=== PATIENT | female | born 1995 | race Caucasian/White ===

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

== ENCOUNTER 2018-02-01 05:19 | Inpatient (IN) | payer MEDICAID ==
[2018-01-31 13:07] LABS: APPEARANCE,URINE SLIGHTLY-CLOUDY; BILIRUBIN,URINE NEGATIVE (NEGATIVE); COLOR,URINE YELLOW; GLUCOSE, URINE NEGATIVE (NEGATIVE); KETONES,URINE NEGATIVE (NEGATIVE); LEUKOCYTE ESTERASE,URINE NEGATIVE (NEGATIVE); NITRITE,URINE NEGATIVE (NEGATIVE); PROTEIN,URINE NEGATIVE (NEGATIVE); UROBILINOGEN,URINE NEGATIVE mg/dL (<2.0)
[2018-01-31 13:13] LABS: ABSOLUTE EOSINOPHILS # (AUTO) 0.1 10^3/uL (0.0-0.6); ABSOLUTE LYMPHOCYTES (AUTO) 2.4 10^3/uL (0.5-4.7); ABSOLUTE MONOCYTES (AUTO) 0.6 10^3/uL (0.1-1.4); ABSOLUTE NEUT (AUTO) 4.9 10^3/uL (1.7-8.2); BASOPHILS % (AUTO) 0.5 % (0-2); EOSINOPHILS % (AUTO) 0.7 % (0-6); HEMATOCRIT 37.2 % (36.0-47.0); HEMOGLOBIN 12.2 g/dL (12.0-15.5); LYMPHOCYTES % (AUTO) 30.1 % (13-45); MEAN CORPUSCULAR HEMOGLOBIN 26.6 pg (27.0-33.4); MEAN CORPUSCULAR HGB CONC 32.9 g/dL (32.0-36.0); MEAN CORPUSCULAR VOLUME 81 fl (80-97); MONOCYTES % (AUTO) 7.4 % (3-13); PLATELET COUNT 102 10^3/uL (150-450); RED BLOOD COUNT 4.61 10^6/uL (3.72-5.28); RED CELL DISTRIBUTION WIDTH 13.1 % (11.5-14.0); SEGMENTED NEUTROPHILS % (AUTO) 61.3 % (42-78); TOTAL CELLS COUNTED % (AUTO) 100 %
[2018-01-31 13:20] LABS: URINE AMPHETAMINES SCREEN NEGATIVE; URINE BARBITURATES SCREEN NEGATIVE; URINE BENZODIAZEPINES SCREEN NEGATIVE; URINE METHADONE SCREEN NEGATIVE; URINE PHENCYCLIDINE SCREEN NEGATIVE
[2018-01-31 13:41] LABS: URINE COCAINE SCREEN UNCONFIRMED POSITIVE; URINE MARIJUANA (THC) SCREEN UNCONFIRMED POSITIVE
[~2018-02-01 05:19] MED LIST changes: +CEFAZOLIN 1 GM/D5W RTU 1 GM/50 ML RTUPB IV PRN; -CEFAZOLIN 1 GM/D5W RTU 1 GM/50 ML RTUPB IV SCH; -CEFAZOLIN SODIUM 1 GM in DEXTROSE 5%-WATER 50 ML IV PRN; +CEFAZOLIN SODIUM IV PRN; +LACTATED RINGERS 1000 ML IV PRN; +NORMAL SALINE IV PRN
[2018-02-01] MEDS ORDERED: MEPERIDINE HCL/PF INJ 25 MG/1 ML DISP.SYRIN IV PRN (08:25)
[2018-02-01] MEDS ORDERED: FENTANYL CITRATE INJ/PF 100 MCG/2 ML AMPUL IV PRN ×3 (08:25)
[2018-02-01] MEDS ORDERED: PROMETHAZINE HCL INJ 25 MG/1 ML VIAL IV PRN ×2 (08:25→09:01)
[2018-02-01] MEDS ORDERED: DIPHENHYDRAMINE HCL 50 MG/ML VIAL IV PRN (08:25)
[2018-02-01] MEDS ORDERED: OXYCODONE-ACETAMINOPHEN 5-325 MG TABLET PO PRN (09:01)
[2018-02-01] MEDS ORDERED: DIPH/PERTUSS(ACELL)/TETANUS VAC/PF 0.5 ML SYR (>=10YO) IM PRN (09:01)
[2018-02-01] MEDS ORDERED: OXYTOCIN/NORMAL SALINE 20 UNIT/1,000 ML RTUINJ IV PRN (09:01)
[2018-02-01] MEDS ORDERED: ACETAMINOPHEN 325 MG TABLET PO PRN (09:01)
[2018-02-01] MEDS ORDERED: SIMETHICONE 80 MG TAB.CHEW PO PRN (09:01)
[2018-02-01] MEDS ORDERED: ACETAMINOPHEN 100 ML IV PRN (09:01)
[2018-02-01] MEDS ORDERED: MEASLES,MUMPS&RUBELLA VACC/PF 0.5 ML VIAL SUBCUT PRN (09:01)
[2018-02-01] MEDS ORDERED: RINGERS SOLUTION,LACTATED 1,000 ML IV PRN (09:01)
--- NOTE | 2018-02-01 09:09 | OPERATIVE REPORT E ---
Operative Report NAME: DOMINIC PRESTON : 1995 AGE: 22Y DATE OF SURGERY: 02/01/2018 ROOM: 218 PREOPERATIVE DIAGNOSES: 1. IUP at 39 weeks. 2. Previous x2. 3. Undesired fertility. POSTOPERATIVE DIAGNOSES: 1. IUP at 39 weeks. 2. Previous x2. 3. Undesired fertility. OPERATION: Low-transverse hysterotomy section with [place] tubal ligation. SURGEON: LANDRY MANCUSO M.D. EROSION CONTROL SPECIALIST: Lucy Shields, certified first assistant surgical scrub technologist. ANESTHESIA: Dr. Aguilar with spinal. FINDINGS: Female infant in cephalic presentation with Apgars of 8 and 9. Uterine window. COMPLICATIONS: None. ESTIMATED BLOOD LOSS: 600 mL. SPECIMENS REMOVED: Bilateral fallopian tubes. PROCEDURE IN DETAIL: Patient was taken to the operating room, prepared and draped in a normal sterile fashion in a supine position with a leftward tilt. A transverse skin incision was made with a scalpel and carried through to the underlying layer of fascia with the same scalpel. The fascia was incised in the midline and extended laterally with Juan Carlos. The fascia was dissected from the rectus muscles sharply with Juan Carlos and the rectus muscle was divided. The peritoneal cavity was entered sharply with Juan Carlos with good visualization of the bladder and the uterus. A bladder blade was inserted. The hysterotomy was nicked with a scalpel and extended laterally with surgeon finger fracture. The infant was then delivered atraumatically. The nose and mouth were suctioned with a suction bulb, the cord was clamped and cut, and the infant was handed off to the awaiting director audience marketing. Cord blood was collected and the placenta was removed manually. The uterus was exteriorized and cleared of clots and debris. The hysterotomy was closed with 0 Monocryl in a running, locked fashion. A second layer of the same suture was used to imbricate to ensure hemostasis. Babcocks were placed on each fallopian tube and the mesosalpinx was divided. The fallopian tubes were then each tied off with two pieces of 2-0 chromic. The intermedient section of each tube was then transected using metzenbaums. The pedicles were cauterized with a bovie. The uterus was returned to the abdomen. The peritoneal cavity was cleared of clots and debris. Pedicles were reinspected and found to be hemostatic. The rectus muscles and peritoneum were reapproximated with mattress stitch of 2-0 chromic, the fascia was closed with 0 Vicryl, the subcutaneous layer was closed with plain catgut, and the skin was closed with 4-0 Vicryl. The patient tolerated the procedure well. Sponge, lap, and needle counts were correct x2. The patient was taken to recovery in stable condition. DICTATING PHYSICIAN: LANDRY MANCUSO M.D. [id number] PHY#: [id number] ID: [id number] JOB#: [id number] ACCT: [id number] cc:LANDRY MANCUSO M.D. > MTDD
[2018-02-01] MEDS ORDERED: EPHEDRINE SULFATE INJ 50 MG/1 ML AMPULE ONE (09:11)
[2018-02-01] MEDS ORDERED: OXYTOCIN 10 UNIT/ML VIAL ONE (09:11)
[2018-02-01] MEDS ORDERED: ONDANSETRON HCL INJ/PF 4 MG/2 ML SDV ONE (09:11)
[2018-02-01] MEDS ORDERED: FENTANYL CITRATE INJ/PF 100 MCG/2 ML AMPUL ONE ×2 (09:11→11:02)
[2018-02-01] MEDS ORDERED: MIDAZOLAM 2 MG/2 ML INJ ONE (09:12)
[2018-02-01 09:35] LABS: CHLAM PCR NOT DETECTED (NOT DETECT); GON PCR NOT DETECTED (NOT DETECT)
[2018-02-01] MEDS ORDERED: DIPHENHYDRAMINE HCL 50 MG/ML VIAL ONE (09:36)
[2018-02-01] MEDS: OXYCODONE-ACETAMINOPHEN 5-325 MG TABLET PO PRN ×3 (11:37→21:15)
[2018-02-01] MEDS: MORPHINE SULFATE 10 MG/ML INJ IM PRN ×2 (12:35→18:10)
[2018-02-01] MEDS: KETOROLAC TROMETHAMINE INJ/PF 30 MG/1 ML SDV IV SCH ×2 (14:19→21:14)
[2018-02-01] MEDS: DOCUSATE SODIUM 100 MG CAPSULE PO SCH ×2 (14:19→18:10)
[2018-02-01] MEDS: PRENATAL VITAMIN W DHA CAPSULE PO SCH (14:19)
[2018-02-02] MEDS: OXYCODONE-ACETAMINOPHEN 5-325 MG TABLET PO PRN ×5 (01:59→20:16)
[2018-02-02] MEDS: KETOROLAC TROMETHAMINE INJ/PF 30 MG/1 ML SDV IV SCH (06:24)
[2018-02-02 07:10] LABS: HEMATOCRIT 32.8 % (36.0-47.0); HEMOGLOBIN 11.2 g/dL (12.0-15.5); MEAN CORPUSCULAR HEMOGLOBIN 27.4 pg (27.0-33.4); MEAN CORPUSCULAR HGB CONC 34.1 g/dL (32.0-36.0); MEAN CORPUSCULAR VOLUME 80 fl (80-97); RED BLOOD COUNT 4.09 10^6/uL (3.72-5.28); RED CELL DISTRIBUTION WIDTH 13.4 % (11.5-14.0); WHITE BLOOD COUNT 7.8 10^3/uL (4.0-10.5)
[2018-02-02 07:55] LABS: PLATELET COUNT 84 10^3/uL (150-450)
[2018-02-02] MEDS: PRENATAL VITAMIN W DHA CAPSULE PO SCH (09:59)
[2018-02-02] MEDS ORDERED: SENNOSIDES/DOCUSATE 8.6-50 MG 1 EACH TABLET PO ONE (10:00)
[2018-02-02] MEDS: PROMETHAZINE HCL 25 MG TABLET PO PRN ×2 (10:08→21:30)
[2018-02-02] MEDS: DOCUSATE SODIUM 100 MG CAPSULE PO SCH ×2 (10:28→17:04)
--- NOTE | 2018-02-02 11:36 | PDOC PROGRESS REPORT ---
Subjective-OB Progress Note for:: 02/02/18 Subjective: formula feeding, asking for pump so she can pump and dump until cleared for . hydrotechnical specialist consulted. complaining of not passing gas, nausea that she states is related to percocet, and constipation. states bleeding is slowing, tolerating diet, and pain controlled with current meds. Physical Exam (OB) Vital Signs: Temp Pulse Resp BP Pulse Ox 98.5 F 85 16 111/64 95 02/02/18 07:52 02/02/18 07:52 02/02/18 07:52 02/02/18 07:52 02/02/18 07:52 Intake & Output 02/01/18 02/02/18 02/03/18 06:59 06:59 06:59 Intake Total 511 Output Total 1900 Balance -1389 Weight 52.844 kg - Dressing Removed: No - opsite Incision: Dressing - Abdomen Description: Soft, Round Hernia Present: No Bowel Sounds: Hypoactive Fundal Description: Firm, Midline Describe if Not Midline: Patient rubbing own fundus Fundal Height: u/u - u/2 - Abdominal Inspection: Normal Distension: No distension Tenderness: Nontender - Extremities Lower extremities: Kim's sign - neg Ankle: Normal, Nontender Objective-Diagnostic Laboratory: 02/02/18 06:44 02/02/18 06:44 WBC 7.8 RBC 4.09 Hgb 11.2 L Hct 32.8 L MCV 80 MCH 27.4 MCHC 34.1 RDW 13.4 Plt Count 84 L Assessment and Plan(PN) - Assessment and Plan (1) Cocaine abuse affecting Is this a current diagnosis for this admission?: Yes (2) Marijuana abuse Is this a current diagnosis for this admission?: Yes (3) S/P tubal ligation Is this a current diagnosis for this admission?: Yes (4) delivery delivered Is this a current diagnosis for this admission?: Yes - Time Spent with Patient Time with patient: Less than 15 minutes - Disposition Anticipated Discharge: Home Within: within 24 hours - phenergan ordered for nausea, sennokot ordered for constipation. cautioned about meds that may contribute to constipation. copy center specialist saw pt and informed her of hospital policy of not supplying pump to babies pos for street drugs.
[2018-02-02] MEDS ORDERED: SENNOSIDES/DOCUSATE 8.6-50 MG 1 EACH TABLET PO SCH (12:00)
[2018-02-02] MEDS: IBUPROFEN 800 MG TABLET PO SCH ×2 (17:04→19:33)
[2018-02-03] MEDS: OXYCODONE-ACETAMINOPHEN 5-325 MG TABLET PO PRN ×2 (00:20→05:56)
[2018-02-03 08:34] LABS: HEMATOCRIT 32.5 % (36.0-47.0); HEMOGLOBIN 10.8 g/dL (12.0-15.5); MEAN CORPUSCULAR HEMOGLOBIN 26.9 pg (27.0-33.4); MEAN CORPUSCULAR HGB CONC 33.1 g/dL (32.0-36.0); MEAN CORPUSCULAR VOLUME 81 fl (80-97); PLATELET COUNT 115 10^3/uL (150-450); RED CELL DISTRIBUTION WIDTH 13.5 % (11.5-14.0); WHITE BLOOD COUNT 7.3 10^3/uL (4.0-10.5)
--- NOTE | 2018-02-03 09:07 | PDOC DISCHARGE SUMMARY ---
Final Diagnosis Discharge Date: 02/03/18 - Final Diagnosis (1) Cocaine abuse affecting Is this a current diagnosis for this admission?: Yes (2) Marijuana abuse Is this a current diagnosis for this admission?: Yes (3) S/P tubal ligation Is this a current diagnosis for this admission?: Yes (4) delivery delivered Is this a current diagnosis for this admission?: Yes Discharge Data - Discharge Medication Prescriptions: Docusate Sodium [Colace 100 mg Capsule] 200 mg PO BID #60 capsule Ibuprofen [Motrin 800 mg Tablet] 800 mg PO Q6 #60 tablet Oxycodone HCl/Acetaminophen [Percocet 5-325 mg Tablet] 1 tab PO Q4HP PRN #14 tablet PRN Reason: Sennosides [Senna Lax] 8.6 mg PO DAILY 7 Days #7 tablet Home Medications: Docusate Sodium [Colace 100 mg Capsule] 200 mg PO BID #60 capsule 02/03/18 Ibuprofen [Motrin 800 mg Tablet] 800 mg PO Q6 #60 tablet 02/03/18 Oxycodone HCl/Acetaminophen [Percocet 5-325 mg Tablet] 1 tab PO Q4HP PRN #14 tablet 02/03/18 Sennosides [Senna Lax] 8.6 mg PO DAILY 7 Days #7 tablet 02/03/18 Procedures: NST Intrapartum Procedure(s): : Low Cervical, Transverse - Diagnosis Test Laboratory: Temp Pulse Resp BP Pulse Ox 97.9 F 79 16 110/52 L 97 02/03/18 07:16 02/03/18 07:16 02/03/18 07:16 02/03/18 07:16 02/03/18 07:16 01/31/18 01/31/18 02/02/18 12:00 12:08 06:44 RBC 4.61 4.09 Hgb 12.2 11.2 L Hct 37.2 32.8 L Urine Opiates Screen NEGATIVE 02/03/18 07:48 RBC 4.00 Hgb 10.8 L Hct 32.5 L Urine Opiates Screen - Discharge information/Instructions Discharge Activity: Balance Activity w/Rest, No Lifting/Push/Pulling, Pelvic Rest, No tub bath Discharge Diet: Regular Disposition: HOME, SELF-CARE Follow up with: [facility] in: 1, Weeks
[2018-02-03] MEDS ORDERED: DOCUSATE SODIUM 100 MG CAPSULE PO SCH (10:00)
[2018-02-03 10:58] VITALS: BP 112/60
== END 2018-02-03 12:00 | disposition home or self-care (01) | DRG 765 ==
LOC: 2S 05:19 → LR 09:24 → 2S 09:25
PROVIDERS: ADMIT Obstetrics & Gynecology; ATTEND Obstetrics & Gynecology
PROC: 0UB70ZZ Excision of Bilateral Fallopian Tubes, Open Approach (ICD-10-PCS; 2018-02-01)
PROC: 4A1HXCZ Monitoring of Products of Conception, Cardiac Rate, External Approach (ICD-10-PCS; 2018-02-01)
PROC: 10D00Z1 Extraction of Products of Conception, Low, Open Approach (ICD-10-PCS; principal; 2018-02-01 07:45)
DX: O34.211 Maternal care for low transverse scar from previous cesarean delivery (principal); O99.324 Drug use complicating childbirth; F12.10 Cannabis abuse, uncomplicated; F14.10 Cocaine abuse, uncomplicated; Z30.2 Encounter for sterilization; Z83.3 Family history of diabetes mellitus; Z82.49 Family history of ischemic heart disease and other diseases of the circulatory system; Z3A.39 39 weeks gestation of pregnancy; Z37.0 Single live birth
CPT/HCPCS: 1961; 36415; 59025; 80307; 81001; 85025; 85027; 86850; 86900; 86901; 87491; 87591; 88302; 94799; G0480; J0690; J1200; J1885; J2250; J2270; J2405; J2590; J3010; J3490; J7120